=== PATIENT | female | born 1945 | race Caucasian/White ===

== ENCOUNTER 2022-02-17 14:18 | Emergency (ER) | payer MEDICARE ==
[~2022-02-17] VITALS: Ht 172.7 cm; Wt 60.5 kg
[2022-02-17 15:02] LABS: BASO # 0.02 K/mm3 (0.02-0.10); EOS # 0.16 K/mm3 (0.04-0.40); EOS % 3.9 % (1.0-5.0); HEMATOCRIT 36.1 % (37.0-47.0); LYMPH# 1.09 K/mm3 (1.50-4.00); MEAN CELL VOLUME 86 fl (78-100); MEAN CORPUSCULAR HEMOGLOBIN 28 pg (27-31); MEAN CORPUSCULAR HGB CONC 33 g/dL (33-37); MEAN PLATELET VOLUME 9.4 fl (7.4-10.4); MONO # 0.41 K/mm3 (0.20-0.80); NEU # 2.39 K/mm3 (1.40-6.50); PLATELET COUNT 305 K/mm3 (130-400); RED BLOOD COUNT 4.22 M/mm3 (4.10-5.30); RED CELL DISTRIBUTION WIDTH 15.5 % (11.5-14.5); WHITE BLOOD COUNT 4.1 K/mm3 (4.8-10.8)
[2022-02-17] MEDS ORDERED: CLOPIDOGREL75 M2 PO (15:03)
[2022-02-17] MEDS ORDERED: PANTOPRAZOLE SO40 MG PO (15:03)
[2022-02-17] MEDS ORDERED: FUROSEMIDE40 MG PO (15:03)
[2022-02-17] MEDS ORDERED: POTASSIUM CHLO20 ME3 PO (15:03)
[2022-02-17] MEDS ORDERED: METOPROLOL TAR100 M1 PO (15:04)
[2022-02-17] MEDS ORDERED: LORAZEPAM0.5 M1 PO (15:04)
[2022-02-17] MEDS ORDERED: ATORVASTATIN CA40 MG PO (15:04)
[2022-02-17] MEDS ORDERED: TOPCARE ASPIRIN81 M1 PO (15:05)
[2022-02-17 15:20] LABS: D-DIMER 0.99 mg/L FEU (0.15-0.50)
[2022-02-17 15:24] LABS: ALBUMIN 2.9 g/dL (3.4-4.8); POTASSIUM 4.3 mmol/L (3.5-5.1); SODIUM 133 mmol/L (136-145)
[2022-02-17 15:26] LABS: GLUCOSE 98 mg/dL (65-105); TOTAL PROTEIN 7.5 g/dL (6.2-8.1)
[2022-02-17 15:27] LABS: CARBON DIOXIDE 24 mmol/L (23-31)
[2022-02-17 15:28] LABS: TOTAL BILIRUBIN 1.3 mg/dL (0.2-1.2)
[2022-02-17 15:32] LABS: AST-SGOT 54 U/L (5-34)
[2022-02-17 15:33] LABS: ALT/SGPT 27 U/L (0-55)
[2022-02-17 16:07] LABS: TROPONIN-I < 0.030 ng/mL (<0.030)
[2022-02-17 16:15] LABS: ERYTHROCYTE SEDIMENTATION RATE 132 mm/hr (0-30)
[2022-02-17 16:56] LABS: URINE APPEARANCE CLEAR; URINE BILIRUBIN 2+ (NEGATIVE); URINE BLOOD 250 ery/uL (NEGATIVE); URINE COLOR YELLOW; URINE GLUCOSE NEGATIVE (NEGATIVE); URINE KETONE NEGATIVE (NEGATIVE); URINE LEUKOCYTE ESTERASE 2+ (NEGATIVE); URINE MUCUS PRESENT (NOT PRESENT); URINE NITRATE NEGATIVE (NEGATIVE); URINE PROTEIN(semi-quant) TRACE (NEGATIVE); URINE UROBILINOGEN NORMAL (NORMAL)
[2022-02-17] MEDS ORDERED: LEXAPRO 10MG10 MG PO (17:34)
[2022-02-17] MEDS ORDERED: FENOFIBRATE160 MG PO (17:35)
[2022-02-17 18:18] VITALS: BP 114/69
[2022-02-21] MEDS ORDERED: LOPRESSOR 550 MG/TAB PO (17:15)
[2022-02-21] MEDS ORDERED: TORSEMIDE20 M1 PO (17:17)
== END 2022-02-17 17:45 | disposition other institution (70) ==
LOC: ED 14:18 → MED/SURG 17:44 → ED 17:44 → MED/SURG 18:10
PROVIDERS: Physician Assistant
DX: I13.0 Hypertensive heart and chronic kidney disease with heart failure and stage 1 through stage 4 chronic kidney disease, or unspecified chronic kidney disease (principal); I50.9 Heart failure, unspecified; N18.9 Chronic kidney disease, unspecified; I48.91 Unspecified atrial fibrillation; Z86.16 Personal history of COVID-19
CPT/HCPCS: Q9967

== ENCOUNTER 2022-02-21 17:22 | Inpatient (IN) | payer MEDICARE ==
[~2022-02-21] VITALS: Ht 165.1 cm; Wt 60.4 kg
[~2022-02-21 17:22] MED LIST: ATORVASTATIN CA40 MG PO; CLOPIDOGREL75 M2 PO; FENOFIBRATE160 MG PO; FUROSEMIDE40 MG PO; LEXAPRO 10MG10 MG PO; LOPRESSOR 550 MG/TAB PO; LORAZEPAM0.5 M1 PO; METOPROLOL TAR100 M1 PO; PANTOPRAZOLE SO40 MG PO; POTASSIUM CHLO20 ME3 PO; TOPCARE ASPIRIN81 M1 PO; TORSEMIDE20 M1 PO
--- NOTE | 2022-02-21 17:25 | NUR ---
PATIENT ADMITTED TO SWING BED ROOM 302.
--- NOTE | 2022-02-21 17:45 | NUR ---
DRESSING TO LLE CHANGED PER DR. GOMEZ REQUEST. SMALL AMOUNT OF SEROSANGUINOUS DRAINGE NOTED. WOUND CLEANSED WITH STERILE WATER, NON STICK PAD APPLIED, COVERED WITH 4X4 AND COBAN. PATIENT TOLERATED PROCEDURE WELL.
[2022-02-21 17:59] VITALS: BP 123/85
--- NOTE | 2022-02-21 18:45 | NUR ---
REPORT GIVEN TO MANNY CLARKE
--- NOTE | 2022-02-21 19:58 | NUR ---
Report received from Karlos BRYANT. Up to BR with 1:1 and walker. Voids 100 ML of clear yellow urine. Assisted back to bed. Needs help getting OOB but got legs back in bed by her self. Assessment completed. No IV, No TELE. HR irregular, rate controlled, no pedal edema noted. Dressing to LLE CDI. SCD in place to RLE. Bed alrm on, call light in reach.
--- NOTE | 2022-02-21 20:45 | NUR ---
Culture and Sensitivity report to Dr. Kaur.
--- NOTE | 2022-02-21 20:55 | NUR ---
Cipro PO started. UA for AM cancelled. Patient educated on new ABT.
--- NOTE | 2022-02-22 05:19 | NUR ---
Rested well all night. Denies pain. Up to BR with 1:1 assist to void. AM medication taken.
[2022-02-22 05:52] VITALS: BP 104/69
--- NOTE | 2022-02-22 07:01 | NUR ---
Report to Stephanie MONTANO.
--- NOTE | 2022-02-22 09:50 | NUR ---
Patient with OT taking shower at this time. A&Ox4, RA, no c/o pain or discomfort. Resting in chair. Reports she slept well last night. Chair in locked position. Call light within reach.
--- NOTE | 2022-02-22 10:18 | NUR ---
OT reports patient is de-sating while ambulating to the restroom. Findings reported to Davonte Higgins APRN at this time. Per orders, O2 tubing at bedside to maintain PS02 above 92%. See new orders.
[2022-02-22 17:35] VITALS: BP 116/74
--- NOTE | 2022-02-22 19:00 | NUR ---
Report received from Stephanie MONTANO.
--- NOTE | 2022-02-22 20:30 | NUR ---
Patient resting in bed and awakened for HS meds-all reviewed and given. Affect quiet. Denies needs.
[2022-02-23 05:29] VITALS: BP 117/81
--- NOTE | 2022-02-23 06:05 | NUR ---
Patient reports "some sleep" this noc. Was up to the bathroom to void frequently during the night.
--- NOTE | 2022-02-23 08:36 | NUR ---
Patient sitting up in chair eating breakfast. A&Ox4, RA, no c/o pain or discomfort. Frustrated with tremors in BUE. Swallowed pills whole with water. Given bottled water from family. Patient states, "I don't like the taste of your water." Eager to work with therapy today. Reports she was up to the bathroom a lot last night. She slept well otherwise. Chair in locked position. Call light within reach.
[2022-02-23 16:19] VITALS: BP 106/71
--- NOTE | 2022-02-23 19:09 | NUR ---
Report received from Stephanie MONTANO. Resting supine in bed, watching TV. A/O x4. States has pain to R shoulder, which is a chronic pain, "I have bursitis, arthritis and tendonitis.". Refused offer of Tylenol. Assessment completed. Bed alarm on. Call light in reach.
--- NOTE | 2022-02-23 23:23 | NUR ---
Up to BR with SBA and walker. SAO2 checked and 98% on RA. Assisted back to bed.
[2022-02-24 05:44] VITALS: BP 101/65
--- NOTE | 2022-02-24 05:48 | NUR ---
Up to BR and AM medications taken. States L leg bothering her more since participating in PT/OT but refuses to take any Tylenol. Up to BR PRN in the night. New mepilex to buttocks due to excoriation and to prevent further breakdown.
[2022-02-24 06:26] LABS: BASO # 0.01 K/mm3 (0.02-0.10); EOS # 0.12 K/mm3 (0.04-0.40); EOS % 3.7 % (1.0-5.0); HEMATOCRIT 32.5 % (37.0-47.0); HEMOGLOBIN 10.6 g/dL (12.5-16.0); LYMPH# 1.24 K/mm3 (1.50-4.00); MEAN CELL VOLUME 86 fl (78-100); MEAN CORPUSCULAR HEMOGLOBIN 28 pg (27-31); MEAN CORPUSCULAR HGB CONC 33 g/dL (33-37); MEAN PLATELET VOLUME 9.7 fl (7.4-10.4); MONO # 0.43 K/mm3 (0.20-0.80); NEU # 1.42 K/mm3 (1.40-6.50); PLATELET COUNT 231 K/mm3 (130-400); RED BLOOD COUNT 3.77 M/mm3 (4.10-5.30); RED CELL DISTRIBUTION WIDTH 15.8 % (11.5-14.5); WHITE BLOOD COUNT 3.2 K/mm3 (4.8-10.8)
[2022-02-24 06:45] LABS: POTASSIUM 3.8 mmol/L (3.5-5.1)
[2022-02-24 06:46] LABS: CALCIUM 8.5 mg/dL (8.3-10.5)
--- NOTE | 2022-02-24 06:57 | NUR ---
Report to Nancy MONTANO.
--- NOTE | 2022-02-24 07:00 | NUR ---
Resumed care from MANNY Castro.
--- NOTE | 2022-02-24 08:30 | NUR ---
Patient up in recliner at this time. Denies pain. Reports she "already feels stronger" from working with PT/OT. Assessment completed. Patient took AM medications whole without issue. HR irregular. Mepilex CDI to coccyx. Dressing to left heredia skin tear CDI. Remains on 1500mL fluid restriction. Needs met. Fall precautions in place.
--- NOTE | 2022-02-24 12:48 | NUR ---
Daughter in to visit patient at this time.
--- NOTE | 2022-02-24 13:28 | NUR ---
Dressing to left heredia replaced at this time. Old dressing with moderate amount of yellow drainage. Patient reports minimal discomfort with dressing change. Wound cleansed, dried, and new dressing of non-adherent pad, gauze, and coban applied.
[2022-02-24 17:09] VITALS: BP 110/76
--- NOTE | 2022-02-24 18:56 | NUR ---
Report given to MANNY Castro.
--- NOTE | 2022-02-24 19:38 | NUR ---
Report received from Nancy MONTANO. Patient up to BR with FLAG CAR DRIVER to void and get ready for bed. A/O x4. Rates pain to R shoulder 9/10 "it always hurts, it will settle down". Agreeable to try some Tylenol at HS to help with pain/sleep. Voids 150 ML clear yellow urine. Ambulates back to bed with SBA walker. Able to get self OOB without assist per FLAG CAR DRIVER report and able to get legs back in bed with a little struggle per this nurse witness. Positioned for comfort. Assessment completed. Dressing to LLE CDI. Bed alarm on. Call light in reach.
--- NOTE | 2022-02-25 00:10 | NUR ---
Up to BR with SBA and walker. Voids. Assisted back to bed. Able to get self in and out of bed per MUSIC INSTRUCTOR report. Denies pain at this time.
[2022-02-25 05:37] VITALS: BP 109/64
--- NOTE | 2022-02-25 06:20 | NUR ---
Rested well all shift, up to BR PRN. Denies pain. Bed alarm on. Call light in reach.
--- NOTE | 2022-02-25 07:11 | NUR ---
Report to Stephanie MONTANO.
--- NOTE | 2022-02-25 08:56 | NUR ---
Patient resting in chair. A&Ox4, RA, no c/o pain or discomfort. Concerned she may have pain with therapy. PRN medication given. Swallowed pills whole with water. Reports she slept well last night. Chair in locked position. Call light within reach.
--- NOTE | 2022-02-25 12:30 | NUR ---
RESUMED CARE FROM CHARMAINE JOINER.
[2022-02-25 17:49] VITALS: BP 109/70
--- NOTE | 2022-02-25 18:35 | NUR ---
REPORT GIVEN TO MANNY CLARKE.
--- NOTE | 2022-02-25 19:30 | NUR ---
Report received from Nancy MONTANO. Patient resting in bed with eyes closed. No signs of pain/distress. Bed alarm on. Call light in reach.
--- NOTE | 2022-02-25 21:29 | NUR ---
Awakens and calls for assist to BR. Ambulates with 1:1 assist and walker. Denies pain at this time. Tylenol given with HS medications for pain prevention/sleep. Dressing to Coccyx arik L heredia CDI. Patient was able to get legs in and out of bed independently tonight. "sometimes I can and sometimes I can't". Assessment completed. Bed alarm on. Call light in reach.
--- NOTE | 2022-02-26 05:00 | NUR ---
Rested well all shift. Rings to use BR. Up with SBA and walker to void. Assisted back to bed. Oxygen in place at 2L/NC while up to BR. Needs some light help getting OOB this AM but got self back into bed independently.
[2022-02-26 05:48] VITALS: BP 105/69
--- NOTE | 2022-02-26 07:00 | NUR ---
Report received from PN. Gloria
--- NOTE | 2022-02-26 07:03 | NUR ---
Report to Nasra MONTANO.
--- NOTE | 2022-02-26 09:00 | NUR ---
Assessment charted. Pt in chair at side of bed resting. Hard of hearing, utilized clip board to communicate, alert and oriented, denies pain but did state that when she starts doing therapy pain increases everywhere and especially right shoulder. PRN tylenol given in anticipation of therapy. Pt up to shower with assist, changed dressing to L heredia with xeroform, 4x4 and coban. Barrier cream applied to coccyx. 2L O2 when ambulating. Will continue to monitor.
[2022-02-26 17:21] VITALS: BP 102/69
--- NOTE | 2022-02-26 18:12 | NUR ---
Pt had visitors most of afternoon. Resting well, ordered dessert. Denies needs, will give report to nightshift nurse who will resume care.
--- NOTE | 2022-02-26 21:31 | NUR ---
Patient resting in bed. A&Ox4, RA, c/o mild discomfort in right shoulder. Ambulated with SBA, gait belt and walker to bathroom. Reports she did well today working with PT/OT. Eager to work with them again. Swallowed pills whole with water. Bed in lowest and locked position. Call light within reach.
--- NOTE | 2022-02-27 00:01 | NUR ---
Report taken from Laurie MONTANO
[2022-02-27 06:15] VITALS: BP 109/70
--- NOTE | 2022-02-27 07:05 | NUR ---
RESUMED CARE FROM CHARMAINE FLEMING.
--- NOTE | 2022-02-27 07:20 | NUR ---
Report given to Felicia MONTANO
[2022-02-27 17:01] VITALS: BP 111/69
--- NOTE | 2022-02-27 18:56 | NUR ---
REPORT GIVEN TO CHARMAINE PANTOJA.
--- NOTE | 2022-02-27 19:00 | NUR ---
Report received from Nancy MONTANO.
--- NOTE | 2022-02-27 20:00 | NUR ---
Patient rests in bed and assisted with walker to the bathroom ambulates slow mostly steady. Rests self back in bed. HS meds along with tylenol for general achyness reviewed and given. Takes 1 to 2 at a time without problems.
[2022-02-28 05:45] VITALS: BP 122/78
--- NOTE | 2022-02-28 06:35 | NUR ---
Patient has been resting with eyes closed. Respirations with ease.
--- NOTE | 2022-02-28 09:00 | NUR ---
Patient resting in chair. A&Ox4, RA, no c/o pain or discomfort. Reports she was up to the bathroom 3 times during the night. She states, "that's my normal amount of times per night." Swallowed pills whole with water. Chair in locked position. Call light within reach.
[2022-02-28 16:30] VITALS: BP 123/76
--- NOTE | 2022-02-28 19:00 | NUR ---
Report received from Stephanie MONTANO.
--- NOTE | 2022-02-28 20:15 | NUR ---
Patient resting in bed and HS meds along with tylenol reviewed and given. Alert and denies further needs. Aquacel to buttucks removed for the night and barrier cream applied. LLL dressing CDI.
[2022-03-01 05:12] VITALS: BP 104/67
--- NOTE | 2022-03-01 06:00 | NUR ---
Patient up to the bathroom and rests back in bed. Returns to resting with eyes closed.
[2022-03-01 08:08] LABS: BASO # 0.01 K/mm3 (0.02-0.10); EOS # 0.11 K/mm3 (0.04-0.40); EOS % 3.1 % (1.0-5.0); HEMATOCRIT 34.3 % (37.0-47.0); HEMOGLOBIN 11.1 g/dL (12.5-16.0); LYMPH# 1.56 K/mm3 (1.50-4.00); MEAN CELL VOLUME 87 fl (78-100); MEAN CORPUSCULAR HEMOGLOBIN 28 pg (27-31); MEAN CORPUSCULAR HGB CONC 32 g/dL (33-37); MEAN PLATELET VOLUME 9.6 fl (7.4-10.4); MONO # 0.36 K/mm3 (0.20-0.80); PLATELET COUNT 194 K/mm3 (130-400); RED BLOOD COUNT 3.93 M/mm3 (4.10-5.30); RED CELL DISTRIBUTION WIDTH 16.2 % (11.5-14.5); WHITE BLOOD COUNT 3.6 K/mm3 (4.8-10.8)
[2022-03-01 08:13] LABS: ALBUMIN 2.7 g/dL (3.4-4.8)
[2022-03-01 08:14] LABS: POTASSIUM 4.1 mmol/L (3.5-5.1)
[2022-03-01 08:15] LABS: CALCIUM 8.9 mg/dL (8.3-10.5)
[2022-03-01 08:16] LABS: TOTAL PROTEIN 7.1 g/dL (6.2-8.1)
[2022-03-01 08:18] LABS: TOTAL BILIRUBIN 0.9 mg/dL (0.2-1.2)
[2022-03-01 17:24] VITALS: BP 115/73
--- NOTE | 2022-03-01 19:44 | NUR ---
Report received from Stephanie MONTANO. Patient rests in bed with eyes closed. No signs of distress. Bed alarm on. Call light in reach.
--- NOTE | 2022-03-01 20:10 | NUR ---
Awake, up to BR with SBA. Voids clear yellow urine and had small soft formed BM. Ambulates back to bed. Able to get self in and out of bed herself. Denies pain. "now that I am laying down.". Assessment completed. HS medication and PRN Tylenol taken whole without difficulty. Bed alarm on. Call light in reach.
--- NOTE | 2022-03-02 05:15 | NUR ---
Rested well. Up to BR with SBA PRN. AM Protonix taken. Denies wants or needs.
[2022-03-02 05:32] VITALS: BP 101/69
--- NOTE | 2022-03-02 06:56 | NUR ---
Report to Stephanie MONTANO.
--- NOTE | 2022-03-02 09:22 | NUR ---
A&Ox4, RA, no c/o pain or discomfort. Sitting up in chair eating breakfast. Reports she was up to the bathroom frequently throughout the night. Eager to take shower this morning. Chair in locked poisition. Call light within reach.
[2022-03-02 17:18] VITALS: BP 106/71
--- NOTE | 2022-03-02 19:57 | NUR ---
Report received from Stephanie MONTANO. Resting supine in bed, watching TV. ACCOUNT SERVICES REPRESENTATIVE's in prior to take to BR and provide HS cares. SCD's in place. Denies pain at rest. States R arm "hurts from working it but only when in use". Rates 8/10 when it does hurt. HS medications taken whole. PRN Tylenol given. Assessment completed. Remains on 2000 ML FR. Denies questions, wants or needs. Bed alarm on. Call light in reach.
[2022-03-03 05:50] VITALS: BP 119/78
--- NOTE | 2022-03-03 06:06 | NUR ---
Rested well through the night. Up to BR PRN. AM Protonix taken without difficulty. Denies pain or needs this AM.
--- NOTE | 2022-03-03 07:00 | NUR ---
Resumed care from MANNY Castro.
--- NOTE | 2022-03-03 07:05 | NUR ---
Report to Nancy MONTANO.
[2022-03-03 17:13] VITALS: BP 105/65
--- NOTE | 2022-03-03 19:00 | NUR ---
Report received from Nancy MONTANO.
--- NOTE | 2022-03-03 19:10 | NUR ---
Report given to CHARMAINE Carlson.
--- NOTE | 2022-03-03 20:00 | NUR ---
Patient resting in bed. Denies pain at this time. HS meds along with tylenol reviewed and given.
--- NOTE | 2022-03-04 05:52 | NUR ---
Patient reports she felt like she slept well. "felt pretty good". "Only up 1-2 times to pee".
[2022-03-04 05:54] VITALS: BP 99/58
--- NOTE | 2022-03-04 07:00 | NUR ---
Resumed care from CHARMAINE Carlson.
--- NOTE | 2022-03-04 08:00 | NUR ---
Patient reports nausea this AM. Weston updated and new order recieved and administered.
--- NOTE | 2022-03-04 08:30 | NUR ---
Patient reports feeling better after Zofran. Up in recliner. Denies pain. Assessment completed. Patient took medications whole without issue. Eating breakfast at this time. Fall precautions in place. Needs met.
[2022-03-04 15:48] VITALS: BP 109/74
--- NOTE | 2022-03-04 19:13 | NUR ---
REPORT GIVEN TO CHARMAINE PANTOJA.
--- NOTE | 2022-03-04 20:00 | NUR ---
Patient rests in bed and awakened for HS meds. Denies pain or needs at this time.
[2022-03-05 05:34] VITALS: BP 107/73
--- NOTE | 2022-03-05 07:00 | NUR ---
REPORT RECEIVED FROM CHARMAINE PANTOJA.
--- NOTE | 2022-03-05 09:00 | NUR ---
OT IN WITH PATIENT AT THIS TIME.
--- NOTE | 2022-03-05 10:00 | NUR ---
PATIENT PLEASENT AND COOPERATIVE WITH CARES. AMBULATORY WITH WALKER X1 ASSIST. PATIENT DENIES COMPLAINTS OF PAIN OR DISCOMFRT AT THIS TIME. ASSESSMENT COMPLETE, SCHEDULED MEDS GIVEN AT THIS TIME. SCATTERED BRUSING NOTED ON BILATERAL UPPER EXTREMETIES. MYPLEX DRESSING NOTED ON BOTTOM. PATIENT DENIES OTHER NEEDS OR COMPLAINTS AT THIS TIME. PATIENT REQUESTED TO LAY IN BED AT THIS TIME. BED IN LOWEST LOCKED POSTION, ALARM ON. CALL LIGHT WITHIN REACH.
--- NOTE | 2022-03-05 11:25 | NUR ---
MEPILEX DRESSING TO BOTTOM CHANGED. REDNESS AND OPEN AREA MEASURING 1.5CM X 0.5CM NOTED ON SACRUM. NO DRAINAGE NOTED, WOUND BED PINK, SKIN SURROUNDING WOUND PINK AND BLANCHABLE. PATIENT TOLERATED DRESSING CHANGE WELL.
--- NOTE | 2022-03-05 15:00 | NUR ---
PATIENT DRESSING CHANGED TO LLE. WOUND CLEANSED WITH STERILE WATER, COVERED WITH XEROFORM PETROLEUM DRESSING, NON STICK 2X3 PAD, AND COBAN. SMALL AMOUTN OF SEROSANGUAS DRAINAGE NOTED ON DRESSING. NO ODOR NOTED. PATIENT TOLERATED PROCEDURE WELL.
[2022-03-05 17:20] VITALS: BP 103/69
--- NOTE | 2022-03-05 19:03 | NUR ---
REPORT GIVEN TO MANNY CLARKE
--- NOTE | 2022-03-05 19:45 | NUR ---
Report received from Karlos BRYANT. Patient resting supine in bed watching TV. A/O x4. Denies pain. Dressing to LLE CDI. SCD in place to RLE. Denies wants or needs at this time. Assessment completed.
--- NOTE | 2022-03-05 20:40 | NUR ---
HS medications taken whole without difficulty. Denies need for PRN Tylenol.
--- NOTE | 2022-03-06 04:33 | NUR ---
Awake several times this shift to use BR. Up with SBA and walker. Able to get self in and out of bed. LLE hurting some but refused offers of Tylenol.
[2022-03-06 05:52] VITALS: BP 105/70
--- NOTE | 2022-03-06 07:09 | NUR ---
Report to Ani MONTANO.
--- NOTE | 2022-03-06 07:22 | NUR ---
Report received from Lalo Trejo, MANNY and care assumed at this time. Pt up with TRAINING FACILITATOR to bathroom. No needs or concerns at this time.
--- NOTE | 2022-03-06 11:00 | NUR ---
Pt states that she doesn't need anything for pain at this time. States that pain is the same as always and "not bad". No further needs or concerns at this time.
--- NOTE | 2022-03-06 13:43 | NUR ---
Dressing to left heredia changed per orders. Small amount of bloody drainage to site. Area pink-red and pt tolerated well. No further needs at this time. Resting in bed, call light in reach.
--- NOTE | 2022-03-06 15:16 | NUR ---
Report given to CHARMAINE Wilhelm.
[2022-03-06 17:20] VITALS: BP 114/74
--- NOTE | 2022-03-07 05:20 | NUR ---
Report taken from Melonie Diaz RN at 2300. Patient up to void several times this shift. Usually voiding 100 ML at a time. States her diurectic kicks in at night. Denies pain. AM medication taken whole without difficulty. Bed alarm on. Call light in reach.
[2022-03-07 06:19] VITALS: BP 108/71
--- NOTE | 2022-03-07 07:21 | NUR ---
Report to Dariana MONTANO.
[2022-03-07 17:54] VITALS: BP 106/58
--- NOTE | 2022-03-07 19:57 | NUR ---
Report received from Dariana MONTANO. Up to BR with SBA. Voids and had small BM. Back to bed. HS medications taken. Assessment completed. Bed alarm on. Call light in reach.
--- NOTE | 2022-03-08 05:16 | NUR ---
Rested on and off between trips to . Up now to void. Assisted back to bed. AM medication taken. V/S and weight obtained. Denies pain or needs. Bed alarm on, call light in reach.
[2022-03-08 06:07] VITALS: BP 109/69
--- NOTE | 2022-03-08 07:00 | NUR ---
RESUMED CARE FROM MANNY CLARKE.
--- NOTE | 2022-03-08 07:11 | NUR ---
Report to Nasra MONTANO.
--- NOTE | 2022-03-08 08:46 | NUR ---
PATIENT UP IN RECLINER EATING BREAKFAST. DENIES PAIN. ASSESSMENT COMPLETED. YENY WRAP TO LEFT LOWER LEG IN PLACE. SCATTERED BRUISING NOTED TO BUE. LSCTA. TOOK AM MEDICATION WITHOUT ISSUE THIS AM. FALL PRECAUTIONS IN PLACE. NEEDS MET.
[2022-03-08 15:45] VITALS: BP 117/72
--- NOTE | 2022-03-08 18:36 | NUR ---
REPORT TO MANNY CLARKE.
--- NOTE | 2022-03-08 19:04 | NUR ---
Report from Nancy MONTANO. Patient resting supine in bed. Drowsy, oriented. Denies pain. Assessment completed. Dressing to LLE CDI with makenna wrap in place. Denies wants or needs at this time.
--- NOTE | 2022-03-09 05:05 | NUR ---
Up to BR several times this shift to void. Denies pain. AM medication taken without difficulty.
[2022-03-09 05:37] VITALS: BP 109/69; BP 144/78
[2022-03-09 07:02] LABS: BASO # 0.01 K/mm3 (0.02-0.10); EOS # 0.08 K/mm3 (0.04-0.40); EOS % 2.5 % (1.0-5.0); HEMATOCRIT 32.3 % (37.0-47.0); HEMOGLOBIN 10.5 g/dL (12.5-16.0); LYMPH# 1.56 K/mm3 (1.50-4.00); MEAN CELL VOLUME 88 fl (78-100); MEAN CORPUSCULAR HEMOGLOBIN 29 pg (27-31); MEAN CORPUSCULAR HGB CONC 33 g/dL (33-37); MEAN PLATELET VOLUME 10.5 fl (7.4-10.4); MONO # 0.26 K/mm3 (0.20-0.80); NEU # 1.26 K/mm3 (1.40-6.50); PLATELET COUNT 145 K/mm3 (130-400); RED BLOOD COUNT 3.66 M/mm3 (4.10-5.30); RED CELL DISTRIBUTION WIDTH 16.9 % (11.5-14.5); WHITE BLOOD COUNT 3.2 K/mm3 (4.8-10.8)
--- NOTE | 2022-03-09 07:05 | NUR ---
Report to Aniyah MONTANO.
[2022-03-09 07:11] LABS: ALBUMIN 2.7 g/dL (3.4-4.8)
[2022-03-09 07:12] LABS: CALCIUM 8.8 mg/dL (8.3-10.5)
[2022-03-09 07:14] LABS: TOTAL PROTEIN 6.8 g/dL (6.2-8.1)
[2022-03-09 17:23] VITALS: BP 108/74
--- NOTE | 2022-03-09 19:45 | NUR ---
Report received from Aniyah MONTANO. Sitting up in recliner. watching TV. States she is "ready to go to bed, she had a rough day". Denies pain. Denies SOA. Lungs diminished in bilateral bases. Assessment completed. HARMONIC ANALYST in to desiree to BR then bed.
[2022-03-10 05:34] VITALS: BP 115/78
--- NOTE | 2022-03-10 06:00 | NUR ---
Rested well all night. Up to BR with SBA and walker PRN. Denies pain or needs. AM medication taken. Bed alarm on. Call light in reach.
--- NOTE | 2022-03-10 07:00 | NUR ---
RESUMED CARE FROM MANNY CLARKE.
--- NOTE | 2022-03-10 07:03 | NUR ---
Report to Nancy MONTANO.
--- NOTE | 2022-03-10 08:10 | NUR ---
PATIENT UP IN RECLINER AT THIS TIME. DENIES PAIN. REPORTS SLEEPING WELL. ASSESSMENT COMPLETED. YENY WRAP TO LLE. TOOK AM MEDICATIONS WHOLE WITHOUT ISSUE. FALL PRECAUTIONS IN PLACE. NEEDS MET.
--- NOTE | 2022-03-10 15:26 | NUR ---
Contacted by Kenyatta from [employer]. She advised that Mrs. Snider was denied additional week in swingbed. States that the inability to lift her leg to the stair was not enough to qualify her for another week of inpatient therapy. Spoke with daughter in the room with Mrs. Snider they are agreeable to take her home tomorrow. 03/11/22 she felt they were advised by insurance last week of the discharge date of 03/11/22. [facility]yl[facility] to their services again. [facility] [place] to [facility]. They will have to get authorization from [id number] before they can start services.
[2022-03-10 17:09] VITALS: BP 112/72
[2022-03-10 18:20] LABS: URINE APPEARANCE CLEAR; URINE BILIRUBIN NEGATIVE (NEGATIVE); URINE BLOOD NEGATIVE (NEGATIVE); URINE COLOR YELLOW; URINE GLUCOSE NEGATIVE (NEGATIVE); URINE KETONE NEGATIVE (NEGATIVE); URINE LEUKOCYTE ESTERASE 1+ (NEGATIVE); URINE MUCUS PRESENT (NOT PRESENT); URINE NITRATE NEGATIVE (NEGATIVE); URINE PROTEIN(semi-quant) TRACE (NEGATIVE); URINE UROBILINOGEN NORMAL (NORMAL)
--- NOTE | 2022-03-10 18:55 | NUR ---
REPORT TO CHARMAINE VILLEGAS.
--- NOTE | 2022-03-10 20:00 | NUR ---
Patient resting in bed. Denies pain. Meds taken without difficulty. Call light within reach, bed alarm on.
[2022-03-11 05:28] VITALS: BP 114/76
--- NOTE | 2022-03-11 06:00 | NUR ---
Patient rested well all night. Denies pain consistently. Up to bathroom overnight with 1:1 assist with walker.
--- NOTE | 2022-03-11 07:00 | NUR ---
REPORT RECEIVED FROM CHARMAINE VILLEGAS. PATIENT UO TO ED, DENIES NEEDS OR COMPLAINTS AT THIS TIME, STATES "NERVOUS AND EXITED" ABOUT GOING HOME TODAY. CHAIR LOCKED, ALARM ON, CALL LIGHT WITHIN REACH.
--- NOTE | 2022-03-11 09:55 | NUR ---
PATIENT A&OX4, DENIES PAIN OR DISCOMFORT. DENIES OTHER NEEDS OR COMPLAINTS AT THIS TIME. PATIENT AMBULATED TO [facility] FROM BATHROOM AT THIS TIME. CHAIR ALARM ON, CALL LIGHT WITHIN REACH.
--- NOTE | 2022-03-11 12:01 | NUR ---
PATIENT DISCARGED HOME WITH HOME HEALTH AT THIS TIME. DISCHARGE INSTRUCTIONS REVIEWED, ALL QUESTIONS ANSWERED, PATIENT AND FAMILY VERBILIZED UNDERSTANDING. ALL PATIENT ITEMS AND BELONGINGS SENT HOME WITH PATIENT.
[2022-03-19] MEDS ORDERED: IPRATROPIUM BROM3 M1 IH (15:58)
[2022-03-19] MEDS ORDERED: AMOXICILLIN AND1 TA2 PO (15:59)
[2022-03-19] MEDS ORDERED: TYLENOL 325MG325 MG PO (16:00)
[2022-03-19] MEDS ORDERED: DICLOFENAC SOD100 GM TP (16:03)
[2022-03-19] MEDS ORDERED: LASIX40 M1 PO (16:04)
[2022-03-19] MEDS ORDERED: PROTONIX TR40 M1 PO (16:04)
[2022-03-19] MEDS ORDERED: B-12500 MC1 PO (16:05)
[2022-03-19] MEDS ORDERED: FERROUS SULFAT325 M4 PO (16:08)
[2022-03-19] MEDS ORDERED: VITAMIN C PUR1000 MG PO (16:08)
== END 2022-03-11 12:01 | disposition home health service (06) | DRG 947 ==
LOC: MED/SURG 17:22
PROVIDERS: Nurse Practitioner; Physician Assistant; ADMIT Family Medicine
DX: R53.81 Other malaise (principal); I50.33 Acute on chronic diastolic (congestive) heart failure; I48.20 Chronic atrial fibrillation, unspecified; N39.0 Urinary tract infection, site not specified; L97.821 Non-pressure chronic ulcer of other part of left lower leg limited to breakdown of skin; R53.83 Other fatigue; Z91.81 History of falling; B96.89 Other specified bacterial agents as the cause of diseases classified elsewhere; I34.0 Nonrheumatic mitral (valve) insufficiency; N18.9 Chronic kidney disease, unspecified; Z86.16 Personal history of COVID-19
CPT/HCPCS: J0696

== ENCOUNTER 2022-05-05 19:02 | Emergency (ER) | payer MEDICARE ==
[~2022-05-05] VITALS: Ht 165.1 cm; Wt 59.9 kg
[~2022-05-05 19:02] MED LIST changes: +AMOXICILLIN AND1 TA2 PO; +B-12500 MC1 PO; +CEPHALEXIN500 M1 PO; +DICLOFENAC SOD100 GM TP; +FERROUS SULFAT325 M4 PO; +IPRATROPIUM BROM3 M1 IH; +LASIX40 M1 PO; +PROTONIX TR40 M1 PO; +TYLENOL 325MG325 MG PO; +VITAMIN C PUR1000 MG PO
[2022-05-05 19:13] VITALS: BP 112/63
[2022-05-05 19:36] LABS: BASO # 0.01 K/mm3 (0.02-0.10); EOS # 0.07 K/mm3 (0.04-0.40); HEMATOCRIT 27.4 % (37.0-47.0); HEMOGLOBIN 8.4 g/dL (12.5-16.0); LYMPH# 1.35 K/mm3 (1.50-4.00); MEAN CELL VOLUME 94 fl (78-100); MEAN CORPUSCULAR HEMOGLOBIN 29 pg (27-31); MEAN CORPUSCULAR HGB CONC 31 g/dL (33-37); MONO # 0.36 K/mm3 (0.20-0.80); NEU # 1.79 K/mm3 (1.40-6.50); PLATELET COUNT 178 K/mm3 (130-400); RED BLOOD COUNT 2.93 M/mm3 (4.10-5.30); RED CELL DISTRIBUTION WIDTH 15.3 % (11.5-14.5); WHITE BLOOD COUNT 3.6 K/mm3 (4.8-10.8)
[2022-05-05 19:50] LABS: POTASSIUM 4.2 mmol/L (3.5-5.1)
[2022-05-05 19:51] LABS: CALCIUM 8.7 mg/dL (8.3-10.5); TOTAL PROTEIN 7.1 g/dL (6.2-8.1)
[2022-05-05 19:53] LABS: TOTAL BILIRUBIN 0.6 mg/dL (0.2-1.2)
[2022-05-05] MEDS ORDERED: MORGIDOX 1X100100 MG PO (20:33)
== END 2022-05-05 21:17 | disposition home or self-care (01) ==
LOC: ED 19:02
PROVIDERS: Physician Assistant
DX: T81.49XA Infection following a procedure, other surgical site, initial encounter (principal); L97.921 Non-pressure chronic ulcer of unspecified part of left lower leg limited to breakdown of skin; D64.9 Anemia, unspecified